=== PATIENT | female | born 1975 | race American Indian/Alaskan Native ===

== ENCOUNTER 2017-07-26 23:46 | Emergency (ER) | payer OTHER, MEDICAID ==
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
[2017-07-27] MEDS ORDERED: Iopamidol 612 MG/ML 100 ML Bottle IVPUSH ONE (00:08)
[2017-07-27 00:17] LABS: CHLORIDE,CL 104 mmol/L (101-111); SODIUM,NA 140 mmol/L (135-145)
== END 2017-07-27 01:32 | disposition home or self-care (01) ==
LOC: DL.ED 23:46
DX: S05.11XA Contusion of eyeball and orbital tissues, right eye, initial encounter (principal); F17.210 Nicotine dependence, cigarettes, uncomplicated; Z88.0 Allergy status to penicillin; X58.XXXA Exposure to other specified factors, initial encounter
CPT/HCPCS: 36415; 70450; 71260; 72125; 74177; 80053; 80305; 81003; 81025; 85025; 99285; G0480; Q9967

== ENCOUNTER 2019-02-27 15:16 | Emergency (ER) | payer MEDICAID, OTHER | END 2019-02-27 15:30 | LOC: DL.ED 15:16 | DX: Z53.21 Procedure and treatment not carried out due to patient leaving prior to being seen by health care provider (principal) | CPT/HCPCS: 99281 ==

== ENCOUNTER 2020-08-02 10:07 | Inpatient (IN) | payer BC, OTHER ==
--- NOTE | 2020-08-02 10:20 | EDM.PDOCBH ---
ED HPI GENERAL MEDICAL PROBLEM - General Chief Complaint: Drug or Alcohol Abuse Stated Complaint: AMBULANCE Time Seen by Provider: 08/02/20 10:20 Source of Information: Reports: Patient, EMS, EMS Notes Reviewed, RN, RN Notes Reviewed History Limitations: Reports: No Limitations - History of Present Illness INITIAL COMMENTS - FREE TEXT/NARRATIVE: Patient presents to ER per [place] [facility] with complaint of nausea/vomiting, anxiety, agitation. Patient states she has been drinking 2 pints a day for the past few months. States her best friend and the drinking has gotten worse. She was to be at the [facility] yesterday to be assisted with treatment, but did not show up as she was intoxicated. Patient states her last drink was at midnight last night. Patient admits to nausea, dry heaves and vomiting. Patient is very anxious. Denies any visual or auditory hallucinations, denies headache. Patient denies any chances of , states she had her tubes tied approximately 4 years ago. Onset: Gradual Duration: Getting Worse - Related Data Allergies Allergy/AdvReac Type Severity Reaction Status Date / Time Penicillins Allergy Rash Verified 08/16/19 00:59 Home Meds: Home Meds Mv-Mn/Iron/FA/Herbal/Digestive [ One Tablet] 1 each PO DAILY 01/22/15 [History] CIWAA - CIWAA CIWAA Nausea And Vomitin - Constant Nausea, Frequent Dry Heaves and Vomiting CIWAA Tremor: 3 CIWAA Paroxysmal Sweats: 2 CIWAA Anxiety: 4 - Moderately Anxious, or Guarded, so Anxiety is Inferred CIWAA Agitation: 1 -Somewhat More than Normal Activity CIWAA Tactile Disturbances: 1 - Very Mild Itching, Pins and [place], Burning or Numbness CIWAA Auditory Disturbances: 0 - Not Present CIWAA Visual Disturbances: 0 - Not Present CIWAA Headache, Fullness in Head: 0 - Not Present CIWAA Orientation And Clouding Of Sensorium: 0 - Oriented and Can do Serial Additions CIWAA Scale Score: 18 Past Medical History - Past Health History Medical/Surgical History: Denies Medical/Surgical History 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 3 miscarriages this past winter, last one was January 2015 twins. deliveries at 34 amd 36 weeks Musculoskeletal History: Reports: Back Pain, Chronic, Fracture Other Musculoskeletal History: fractures wrist hx with surgery 2003 Psychiatric History: Reports: Depression Other Psychiatric History: cigarette smoker and alcohol abuse in remission sustaned Endocrine/Metabolic History: Reports: Diabetes, Gestational - Past Surgical History Endocrine Surgical History: Reports: None Neurological Surgical History: Reports: None Social & Family History - Family History Family Medical History: Noncontributory - Living Situation & Occupation Living situation: Reports: Single Occupation: Employed ED ROS GENERAL - Review of Systems Review Of Systems: Comprehensive ROS is negative, except as noted in HPI. ED EXAM, BEHAVIORAL HEALTH - Physical Exam Exam: See Below Exam Limited By: No Limitations General Appearance: Alert, WD/WN, Anxious Eye Exam: Bilateral Eye: EOMI, Normal Inspection Ears: Normal External Exam, Hearing Grossly Normal Nose: Normal Inspection Throat/Mouth: Normal Inspection, Normal Voice, No Airway Compromise Head: Atraumatic, Normocephalic Neck: Normal Inspection, Supple, Non-Tender, Full Range of Motion Respiratory/Chest: No Respiratory Distress, No Accessory Muscle Use, Chest Non- Tender, Rhonchi (throughout) Cardiovascular: Normal Peripheral Pulses, Regular Rate, Rhythm, No Edema, No Gallop, No JVD, No Murmur, No Rub GI/Abdominal: Normal Bowel Sounds, Soft, Non-Tender (Female) Exam: Deferred Rectal (Female) Exam: Deferred Back Exam: Normal Inspection, Full Range of Motion, NT Extremities: Normal Inspection, Normal Range of Motion, Non-Tender, Normal Capillary Refill, No Pedal Edema Neurological: Alert, Normal Mood/Affect, CN II-XII Intact, Normal Cognition, Normal Gait, Normal Reflexes, No Motor/Sensory Deficits, Oriented x 3 Psychiatric: Alert, Normal Cognition, Oriented, Restless, Agitated Skin Exam: Warm, Dry, Intact, Normal color, No rash COURSE, BEHAVIORAL HEALTH COMP - Course Orders, Labs, Meds: Active Orders 24 hr Category Date Time Status Admission Diagnosis [ADT] Stat ADT 08/02/20 11:32 Ordered Patient Status [ADT] Routine ADT 08/02/20 11:32 Active CORONAVIRUS COVID-19 PCR PHL Stat Lab 08/02/20 11:32 Ordered DRUG SCREEN URINE BIORAD [URCHEM] Stat Lab 08/02/20 10:21 Ordered URINALYSIS W/MICROSCOPIC [UA W/MICROSCOPIC] [URIN] Stat Lab 08/02/20 10:24 Ordered Sodium Chloride 0.9% [Normal Saline] 1,000 ml Med 08/02/20 11:36 Ordered IV CONTINUOUS Laboratory Tests 08/02/20 08/02/20 Range/Units 10:39 10:39 WBC 8.2 (5.0-10.0) 10^3/uL RBC 5.14 (4.2-5.4) 10^6/uL Hgb 16.3 H (12.0-16.0) g/dL Hct 47.5 H (37.0-47.0) % MCV 92.4 (80-100) fL MCH 31.7 (27.0-34.0) pg MCHC 34.3 (33.0-35.0) g/dL Plt Count 221 (150-450) 10^3/uL Neut % (Auto) 86.3 H (42.2-75.2) % Lymph % (Auto) 8.0 L (20.5-50.1) % [place] % (Auto) 5.1 (2-8) % Eos % (Auto) 0.1 L (1.0-3.0) % Baso % (Auto) 0.5 (0.0-1.0) % Sodium 136 (136-145) mmol/L Potassium 3.9 (3.5-5.1) mmol/L Chloride 99 (98-107) mmol/L Carbon Dioxide 26 (21-32) mmol/L Anion Gap 14.9 H (7-13) mEq/L BUN 20 H (7-18) mg/dL Creatinine 0.72 (0.55-1.02) mg/dL Est Cr Clr Drug Dosing 98.49 mL/min Estimated GFR (MDRD) > 60 BUN/Creatinine Ratio 27.8 (No establ ref range) Glucose 106 H (74-99) mg/dL Calcium 7.7 L (8.5-10.1) mg/dL Total Bilirubin 0.5 (0.2-1.0) mg/dL AST 115 H (15-37) U/L ALT 65 H (14-59) U/L Alkaline Phosphatase 103 (46-116) U/L Total Protein 6.9 (6.4-8.2) g/dL Albumin 3.2 L (3.4-5.0) g/dL Globulin 3.7 Albumin/Globulin Ratio 0.86 Ethyl Alcohol 52 (0) mg/dL Medications Discontinued Medications Generic Name Dose Route Start Last Admin Trade Name Faustoq PRN Reason Stop Dose Admin Multivitamins/Minerals 10 ml/ 1,011.2 mls @ 999 mls/hr 08/02/20 10:25 08/02/20 10:46 Folic Acid 1 mg/ Thiamine HCl IV 08/02/20 11:25 999 mls/hr 100 mg/ Lactated Ringer's ONETIME ONE Administration Lorazepam 1 mg 08/02/20 10:25 08/02/20 10:43 Ativan IVPUSH 08/02/20 10:26 1 mg ONETIME ONE Administration Ondansetron HCl 4 mg 08/02/20 10:25 08/02/20 10:42 Zofran IV 08/02/20 10:26 4 mg ONETIME ONE Administration Discharge vs Psych Eval/Treatment:: 08/02/20 10:39 [facility] notified, 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 08/02/20 11:33 Carlos from the [facility] here to visit with the patient. Discussed patient case with Dr. Kenny who agreed to accept the patient for inpatient admission. Departure - Departure Time of Disposition: 11:37 Disposition: Admitted As Inpatient 64 Condition: Fair Clinical Impression: Alcohol withdrawal syndrome Qualifiers: Complication of substance-induced condition: uncomplicated Qualified Code(s): F10.230 - Alcohol dependence with withdrawal, uncomplicated - Discharge Information *PRESCRIPTION DRUG MONITORING PROGRAM REVIEWED*: No *COPY OF PRESCRIPTION DRUG MONITORING REPORT IN PATIENT BLANCA: No Forms: ED Department Discharge - My Orders Last 24 Hours: My Active Orders 08/02/20 10:21 DRUG SCREEN URINE BIORAD [URCHEM] Stat 08/02/20 10:24 URINALYSIS W/MICROSCOPIC [UA W/MICROSCOPIC] [URIN] Stat 08/02/20 11:32 Admission Diagnosis [ADT] Stat Patient Status [ADT] Routine CORONAVIRUS COVID-19 PCR PHL Stat 08/02/20 11:36 Sodium Chloride 0.9% [Normal Saline] 1,000 ml IV CONTINUOUS - Assessment/Plan Last 24 Hours: My Active Orders 08/02/20 10:21 DRUG SCREEN URINE BIORAD [URCHEM] Stat 08/02/20 10:24 URINALYSIS W/MICROSCOPIC [UA W/MICROSCOPIC] [URIN] Stat 08/02/20 11:32 Admission Diagnosis [ADT] Stat Patient Status [ADT] Routine CORONAVIRUS COVID-19 PCR PHL Stat 08/02/20 11:36 Sodium Chloride 0.9% [Normal Saline] 1,000 ml IV CONTINUOUS
[2020-08-02] MEDS ORDERED: Ondansetron 4 MG/2 ML SDV IV ONE (10:25)
[2020-08-02] MEDS ORDERED: LORazepam 2 MG/ML SDV IVPUSH ONE (10:25)
[2020-08-02] MEDS ORDERED: MVI, Adult with Vitamin K 10 ML, Folic Acid 1 MG, Thiamine 100 MG in Lactated Ringers 1... IV ONE ×4 (10:25)
[2020-08-02 10:56] LABS: ANION GAP 14.9 mEq/L (7-13); CHLORIDE,CL 99 mmol/L (98-107); SODIUM,NA 136 mmol/L (136-145)
[2020-08-02] MEDS ORDERED: Sodium Chloride 0.9% 1,000 ML IV ONE (11:36)
[2020-08-02] MEDS ORDERED: Ondansetron 4 MG/2 ML SDV IVPUSH PRN (12:32)
[2020-08-02] MEDS ORDERED: LORazepam 2 MG/ML SDV IV PRN (12:32)
--- NOTE | 2020-08-02 12:37 | PCM.HP ---
H&P History of Present Illness - General Date of Service: 08/02/20 Admit Problem/Dx: Admission Diagnosis/Problem Admission Diagnosis/Problem Alcohol withdrawal syndrome Source of Information: Patient History Limitations: Reports: No Limitations - History of Present Illness Initial Comments - Free Text/Narative: Patient is a 44-year-old female with a medical history of gestational diabetes, depression, alcohol abuse and tobacco use who presented with complains of nausea, vomiting, diarrhea and anxiety. Patient's symptoms started about 2 days ago with multiple episodes of loose stools per day. She denied blood in the stools. Today she had several episodes of emesis since this morning. These have been associated with diffuse mild abdominal pain. She report drinking about 2 pints of alcohol everyday for the past few months. Her last drink was yesterday. She complains of anxiety due to her alcohol use and is wanting to quit. In the ER, she required ativan for withd alma symptoms. Labs were remarkable for elevated transaminases. - Related Data Allergies/Adverse Reactions: Allergies Allergy/AdvReac Type Severity Reaction Status Date / Time amoxicillin Allergy Rash Verified 08/02/20 12:25 Penicillins Allergy Rash Verified 08/16/19 00:59 Home Medications: Home Meds . 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 3 miscarriages this past winter, last one was January 2015 twins. deliveries at 34 amd 36 weeks Musculoskeletal History: Reports: Back Pain, Chronic, Fracture Other Musculoskeletal History: fractures wrist hx with surgery 2003 Psychiatric History: Reports: Depression Other Psychiatric History: cigarette smoker and alcohol abuse in remission sustaned Endocrine/Metabolic History: Reports: Diabetes, Gestational - Past Surgical History Endocrine Surgical History: Reports: None Neurological Surgical History: Reports: None Social & Family History - Family History Family Medical History: Noncontributory - Living Situation & Occupation Living situation: Reports: Single Occupation: Employed H&P Review of Systems - Review of Systems: Review Of Systems: See Below General: Reports: No Symptoms HEENT: Reports: No Symptoms Pulmonary: Reports: No Symptoms Gastrointestinal: Reports: Abdominal Pain, Diarrhea, Nausea, Vomiting Genitourinary: Reports: No Symptoms Musculoskeletal: Reports: No Symptoms Skin: Reports: No Symptoms Psychiatric: Reports: No Symptoms Neurological: Reports: No Symptoms Hematologic/Lymphatic: Reports: No Symptoms Exam - Exam Exam: See Below - Vital Signs Weight: 205 lb - Exam General: Alert, Oriented, 4 HEENT: PERRLA, Hearing Intact, Mucosa Moist & [place], Nares Patent, Normal Nasal Septum, Posterior Pharynx Clear, Conjunctiva Clear, EOMI, EACs Clear, TMs Clear Neck: Supple, Trachea Midline, 2 Lungs: Clear to Auscultation, Normal Respiratory Effort Cardiovascular: Regular Rate, Regular Rhythm GI/Abdominal Exam: Normal Bowel Sounds, Soft, No Organomegaly, No Distention, No Abnormal Bruit, No Mass, Pelvis Stable, Tender Back Exam: Normal Inspection, Full Range of Motion, NT Extremities: Normal Inspection, Normal Range of Motion, Non-Tender, No Pedal Edema, Normal Capillary Refill Neurological: Cranial Nerves Intact, Reflexes Equal Bilateral Neuro Extensive - Mental Status: Alert, Oriented x3, Normal Mood/Affect, Normal Cognition Neuro Extensive - Motor, Sensory, Reflexes: CN II-XII Intact, Normal Gait, Normal Reflexes Psychiatric: Alert, Normal Affect, Normal Mood - Patient Data Lab Results Last 24 hrs: Laboratory Results - last 24 hr 08/02/20 08/02/20 08/02/20 Range/Units 10:39 10:39 11:50 WBC 8.2 (5.0-10.0) 10^3/uL RBC 5.14 (4.2-5.4) 10^6/uL Hgb 16.3 H (12.0-16.0) g/dL Hct 47.5 H (37.0-47.0) % MCV 92.4 (80-100) fL MCH 31.7 (27.0-34.0) pg MCHC 34.3 (33.0-35.0) g/dL Plt Count 221 (150-450) 10^3/uL Neut % (Auto) 86.3 H (42.2-75.2) % Lymph % (Auto) 8.0 L (20.5-50.1) % [place] % (Auto) 5.1 (2-8) % Eos % (Auto) 0.1 L (1.0-3.0) % Baso % (Auto) 0.5 (0.0-1.0) % Sodium 136 (136-145) mmol/L Potassium 3.9 (3.5-5.1) mmol/L Chloride 99 (98-107) mmol/L Carbon Dioxide 26 (21-32) mmol/L Anion Gap 14.9 H (7-13) mEq/L BUN 20 H (7-18) mg/dL Creatinine 0.72 (0.55-1.02) mg/dL Est Cr Clr Drug Dosing 98.49 mL/min Estimated GFR (MDRD) > 60 BUN/Creatinine Ratio 27.8 (No establ ref range) Glucose 106 H (74-99) mg/dL Calcium 7.7 L (8.5-10.1) mg/dL Total Bilirubin 0.5 (0.2-1.0) mg/dL AST 115 H (15-37) U/L ALT 65 H (14-59) U/L Alkaline Phosphatase 103 (46-116) U/L Total Protein 6.9 (6.4-8.2) g/dL Albumin 3.2 L (3.4-5.0) g/dL Globulin 3.7 Albumin/Globulin Ratio 0.86 Ethyl Alcohol 52 (0) mg/dL SARS CoV-2 RNA Rapid DERRICK Negative (NEGATIVE) Result Diagrams: 08/02/20 10:39 08/02/20 10:39 Problem List Initiated/Reviewed/Updated: Yes Orders Last 24hrs: Active Orders 24 hr Category Date Time Status Admission Diagnosis [ADT] Stat ADT 08/02/20 11:32 Ordered Patient Status [ADT] Routine ADT 08/02/20 11:32 Active Antiembolic Devices [RC] PER UNIT ROUTINE Care 08/02/20 12:33 Active Aspiration Precautions [RC] ASDIRECTED Care 08/02/20 12:35 Active CIWAA Assessment [RC] Q4H Care 08/02/20 12:32 Active Cardiac Monitoring [RC] CONTINUOUS Care 08/02/20 12:32 Active Notify Provider [RC] PRN Care 08/02/20 12:35 Active Oxygen Therapy [RC] PRN Care 08/02/20 12:32 Active Up ad Padmini [RC] ASDIRECTED Care 08/02/20 12:32 Active VTE/DVT Education [RC] PER UNIT ROUTINE Care 08/02/20 12:32 Active Vital Signs [RC] Q4H Care 08/02/20 12:32 Active Regular Diet [DIET] Diet 08/02/20 Lunch Active BASIC METABOLIC PANEL,BMP [CHEM] AM Lab 08/03/20 05:11 Ordered DRUG SCREEN URINE BIORAD [URCHEM] Stat Lab 08/02/20 10:21 Ordered MAGNESIUM [CHEM] AM Lab 08/03/20 05:11 Ordered PHOSPHORUS [CHEM] AM Lab 08/03/20 05:11 Ordered URINALYSIS W/MICROSCOPIC [UA W/MICROSCOPIC] [URIN] Stat Lab 08/02/20 10:24 Ordered Enoxaparin [Lovenox] Med 08/02/20 13:00 Ordered 40 mg SUBCUT DAILY LORazepam [Ativan] Med 08/02/20 12:32 Ordered See Protocol IV TITRATE PRN LORazepam [Ativan] Med 08/02/20 12:32 Ordered See Protocol PO TITRATE PRN Multivitamins,Therapeutic [Thera] Med 08/03/20 09:00 Ordered 1 each PO DAILY Ondansetron [Zofran ODT] Med 08/02/20 12:32 Ordered 4 mg PO Q4H PRN Ondansetron [Zofran] Med 08/02/20 12:32 Ordered 4 mg IVPUSH Q4H PRN Sodium Chloride 0.9% [Normal Saline] 1,000 ml Med 08/02/20 11:36 Active IV CONTINUOUS Thiamine [Vitamin B-1] Med 08/03/20 09:00 Ordered 100 mg PO DAILY Antiembolic Hose [OM.PC] Per Unit Routine Oth 08/02/20 12:32 Ordered Resuscitation Status Routine Resus Stat 08/02/20 12:32 Ordered Medication Orders Enoxaparin Sodium (Lovenox) 40 mg SUBCUT DAILY MAX Sodium Chloride (Normal Saline) 1,000 mls @ 100 mls/hr IV CONTINUOUS ONE Stop: 08/02/20 21:35 Lorazepam (Ativan) 0 mg IV TITRATE PRN; Protocol PRN Reason: alcohol withdrawal Lorazepam (Ativan) 0 mg PO TITRATE PRN; Protocol PRN Reason: alcohol withdrawal Multivitamins (Thera) 1 each PO DAILY MAX Ondansetron HCl (Zofran Odt) 4 mg PO Q4H PRN PRN Reason: nausea, able to take PO Ondansetron HCl (Zofran) 4 mg IVPUSH Q4H PRN PRN Reason: Nausea/Vomiting Thiamine HCl (Vitamin B-1) 100 mg PO DAILY MAX Assessment/Plan Comment:: Alcohol withdrawal - Start CIWA protocol - Daily thiamine and Multivitamin -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
[2020-08-02] MEDS: Ondansetron 4 MG Tab.DIS PO PRN ×2 (14:17→19:34)
[2020-08-02] MEDS: Enoxaparin 40 MG/0.4 ML Syringe SUBCUT SCH (14:17)
[2020-08-02] MEDS: LORazepam 0.5 MG Tab PO PRN ×3 (14:17→21:14)
[2020-08-03 07:05] LABS: ANION GAP 12.4 mEq/L (7-13); CHLORIDE,CL 101 mmol/L (98-107); SODIUM,NA 136 mmol/L (136-145)
[2020-08-03] MEDS: Thiamine 100 MG Tab PO SCH (08:16)
[2020-08-03] MEDS: Multivitamins,Therapeutic Tab PO SCH (08:16)
[2020-08-03] MEDS: Enoxaparin 40 MG/0.4 ML Syringe SUBCUT SCH (08:19)
[2020-08-03] MEDS ORDERED: Potassium Chloride 10 MEQ Tab.ER PO SCH (09:00)
--- NOTE | 2020-08-03 10:30 | PCM.PN ---
- General Info Date of Service: 08/03/20 Admission Dx/Problem (Free Text): Admission Diagnosis/Problem Admission Diagnosis/Problem Alcohol withdrawal syndrome Subjective Update: Patient seen and examined today. Still having lose stool and mild abdominal cramps, though improving. Required ativan for withdrawal symptoms. Afebrile overnight. Functional Status: Reports: Pain Controlled - Review of Systems General: Reports: No Symptoms HEENT: Reports: No Symptoms Pulmonary: Reports: No Symptoms Cardiovascular: Reports: No Symptoms Gastrointestinal: Reports: Abdominal Pain, Diarrhea Genitourinary: Reports: No Symptoms Musculoskeletal: Reports: No Symptoms Skin: Reports: No Symptoms Neurological: Reports: No Symptoms Psychiatric: Reports: No Symptoms - Patient Data Vitals - Most Recent: Last Vital Signs Temp 97.6 F 08/03/20 07:44 Pulse 83 08/03/20 07:44 Resp 18 08/03/20 07:44 BP 146/68 H 08/03/20 07:44 Pulse Ox 95 08/03/20 07:44 Weight - Most Recent: 205 lb I&O - Last 24 Hours: Intake & Output 08/02/20 08/03/20 08/03/20 22:59 06:59 14:59 Intake Total 240 1457 200 Balance 240 1457 200 Lab Results Last 24 Hours: Laboratory Results - last 24 hr 08/02/20 08/02/20 08/02/20 Range/Units 10:39 10:39 10:39 WBC 8.2 (5.0-10.0) 10^3/uL RBC 5.14 (4.2-5.4) 10^6/uL Hgb 16.3 H (12.0-16.0) g/dL Hct 47.5 H (37.0-47.0) % MCV 92.4 (80-100) fL MCH 31.7 (27.0-34.0) pg MCHC 34.3 (33.0-35.0) g/dL Plt Count 221 (150-450) 10^3/uL Neut % (Auto) 86.3 H (42.2-75.2) % Lymph % (Auto) 8.0 L (20.5-50.1) % Lares % (Auto) 5.1 (2-8) % Eos % (Auto) 0.1 L (1.0-3.0) % Baso % (Auto) 0.5 (0.0-1.0) % Sodium 136 (136-145) mmol/L Potassium 3.9 (3.5-5.1) mmol/L Chloride 99 (98-107) mmol/L Carbon Dioxide 26 (21-32) mmol/L Anion Gap 14.9 H (7-13) mEq/L BUN 20 H (7-18) mg/dL Creatinine 0.72 (0.55-1.02) mg/dL Est Cr Clr Drug Dosing 98.49 mL/min Estimated GFR (MDRD) > 60 BUN/Creatinine Ratio 27.8 (No establ ref range) Glucose 106 H (74-99) mg/dL Calcium 7.7 L (8.5-10.1) mg/dL Phosphorus (2.6-4.7) mg/dL Magnesium (1.8-2.4) mg/dL Total Bilirubin 0.5 (0.2-1.0) mg/dL AST 115 H (15-37) U/L ALT 65 H (14-59) U/L Alkaline Phosphatase 103 (46-116) U/L Total Protein 6.9 (6.4-8.2) g/dL Albumin 3.2 L (3.4-5.0) g/dL Globulin 3.7 Albumin/Globulin Ratio 0.86 Lipase 76 (73-393) U/L Urine Color (YELLOW) Urine Appearance (CLEAR) Urine pH (5.0-9.0) Ur Specific [place] (1.005-1.030) Urine Protein (NEGATIVE) Urine Glucose (UA) (NEGATIVE) Urine Ketones (NEGATIVE) Urine Occult Blood (NEGATIVE) Urine Nitrite (NEGATIVE) Urine Bilirubin (NEGATIVE) Urine Urobilinogen (0.2-1.0) mg/dL Ur Leukocyte Esterase (NEGATIVE) Urine RBC /HPF Urine WBC (0-5/HPF) /HPF Ur Epithelial Cells (NOT SEEN) /HPF Urine Opiates Screen (NEGATIVE) Ur Oxycodone Screen (NEGATIVE) Urine Methadone Screen (NEGATIVE) Ur Barbiturates Screen (NEGATIVE) U Tricyclic Antidepress (NEGATIVE) Ur Phencyclidine Scrn (NEGATIVE) Ur Amphetamine Screen (NEGATIVE) U Methamphetamines Scrn (NEGATIVE) Urine MDMA Screen (NEGATIVE) U Benzodiazepines Scrn (NEGATIVE) Urine Cocaine Screen (NEGATIVE) U Marijuana (THC) Screen (NEGATIVE) Ethyl Alcohol 52 (0) mg/dL SARS CoV-2 RNA Rapid DERRICK (NEGATIVE) 08/02/20 08/02/20 08/02/20 Range/Units 11:50 14:05 14:05 WBC (5.0-10.0) 10^3/uL RBC (4.2-5.4) 10^6/uL Hgb (12.0-16.0) g/dL Hct (37.0-47.0) % MCV (80-100) fL MCH (27.0-34.0) pg MCHC (33.0-35.0) g/dL Plt Count (150-450) 10^3/uL Neut % (Auto) (42.2-75.2) % Lymph % (Auto) (20.5-50.1) % Lares % (Auto) (2-8) % Eos % (Auto) (1.0-3.0) % Baso % (Auto) (0.0-1.0) % Sodium (136-145) mmol/L Potassium (3.5-5.1) mmol/L Chloride (98-107) mmol/L Carbon Dioxide (21-32) mmol/L Anion Gap (7-13) mEq/L BUN (7-18) mg/dL Creatinine (0.55-1.02) mg/dL Est Cr Clr Drug Dosing mL/min Estimated GFR (MDRD) BUN/Creatinine Ratio (No establ ref range) Glucose (74-99) mg/dL Calcium (8.5-10.1) mg/dL Phosphorus (2.6-4.7) mg/dL Magnesium (1.8-2.4) mg/dL Total Bilirubin (0.2-1.0) mg/dL AST (15-37) U/L ALT (14-59) U/L Alkaline Phosphatase (46-116) U/L Total Protein (6.4-8.2) g/dL Albumin (3.4-5.0) g/dL Globulin Albumin/Globulin Ratio Lipase (73-393) U/L Urine Color Yellow (YELLOW) Urine Appearance Clear (CLEAR) Urine pH 7.0 (5.0-9.0) Ur Specific [place] 1.025 (1.005-1.030) Urine Protein 30 H (NEGATIVE) Urine Glucose (UA) Negative (NEGATIVE) Urine Ketones Negative (NEGATIVE) Urine Occult Blood Small H (NEGATIVE) Urine Nitrite Negative (NEGATIVE) Urine Bilirubin Negative (NEGATIVE) Urine Urobilinogen 0.2 (0.2-1.0) mg/dL Ur Leukocyte Esterase Negative (NEGATIVE) Urine RBC 0-5 /HPF Urine WBC 0-5 (0-5/HPF) /HPF Ur Epithelial Cells Few (NOT SEEN) /HPF Urine Opiates Screen Negative (NEGATIVE) Ur Oxycodone Screen Negative (NEGATIVE) Urine Methadone Screen Negative (NEGATIVE) Ur Barbiturates Screen Negative (NEGATIVE) U Tricyclic Antidepress Negative (NEGATIVE) Ur Phencyclidine Scrn Negative (NEGATIVE) Ur Amphetamine Screen Negative (NEGATIVE) U Methamphetamines Scrn Negative (NEGATIVE) Urine MDMA Screen Negative (NEGATIVE) U Benzodiazepines Scrn Positive H (NEGATIVE) Urine Cocaine Screen Negative (NEGATIVE) U Marijuana (THC) Screen Negative (NEGATIVE) Ethyl Alcohol (0) mg/dL SARS CoV-2 RNA Rapid DERRICK Negative (NEGATIVE) 08/03/20 Range/Units 06:26 WBC (5.0-10.0) 10^3/uL RBC (4.2-5.4) 10^6/uL Hgb (12.0-16.0) g/dL Hct (37.0-47.0) % MCV (80-100) fL MCH (27.0-34.0) pg MCHC (33.0-35.0) g/dL Plt Count (150-450) 10^3/uL Neut % (Auto) (42.2-75.2) % Lymph % (Auto) (20.5-50.1) % Lares % (Auto) (2-8) % Eos % (Auto) (1.0-3.0) % Baso % (Auto) (0.0-1.0) % Sodium 136 (136-145) mmol/L Potassium 3.4 L (3.5-5.1) mmol/L Chloride 101 (98-107) mmol/L Carbon Dioxide 26 (21-32) mmol/L Anion Gap 12.4 (7-13) mEq/L BUN 12 (7-18) mg/dL Creatinine 0.66 (0.55-1.02) mg/dL Est Cr Clr Drug Dosing 107.44 mL/min Estimated GFR (MDRD) > 60 BUN/Creatinine Ratio (No establ ref range) Glucose 104 H (74-99) mg/dL Calcium 7.6 L (8.5-10.1) mg/dL Phosphorus 2.8 (2.6-4.7) mg/dL Magnesium 1.8 (1.8-2.4) mg/dL Total Bilirubin (0.2-1.0) mg/dL AST (15-37) U/L ALT (14-59) U/L Alkaline Phosphatase (46-116) U/L Total Protein (6.4-8.2) g/dL Albumin (3.4-5.0) g/dL Globulin Albumin/Globulin Ratio Lipase (73-393) U/L Urine Color (YELLOW) Urine Appearance (CLEAR) Urine pH (5.0-9.0) Ur Specific [place] (1.005-1.030) Urine Protein (NEGATIVE) Urine Glucose (UA) (NEGATIVE) Urine Ketones (NEGATIVE) Urine Occult Blood (NEGATIVE) Urine Nitrite (NEGATIVE) Urine Bilirubin (NEGATIVE) Urine Urobilinogen (0.2-1.0) mg/dL Ur Leukocyte Esterase (NEGATIVE) Urine RBC /HPF Urine WBC (0-5/HPF) /HPF Ur Epithelial Cells (NOT SEEN) /HPF Urine Opiates Screen (NEGATIVE) Ur Oxycodone Screen (NEGATIVE) Urine Methadone Screen (NEGATIVE) Ur Barbiturates Screen (NEGATIVE) U Tricyclic Antidepress (NEGATIVE) Ur Phencyclidine Scrn (NEGATIVE) Ur Amphetamine Screen (NEGATIVE) U Methamphetamines Scrn (NEGATIVE) Urine MDMA Screen (NEGATIVE) U Benzodiazepines Scrn (NEGATIVE) Urine Cocaine Screen (NEGATIVE) U Marijuana (THC) Screen (NEGATIVE) Ethyl Alcohol (0) mg/dL SARS CoV-2 RNA Rapid DERRICK (NEGATIVE) Kvng Results Last 24 Hours: Microbiology 08/02/20 14:05 Clostridioides difficile (PCR) - Final Stool / Feces Med Orders - Current: Current Medications Enoxaparin Sodium (Lovenox) 40 mg SUBCUT DAILY [facility] Last Admin: 08/03/20 08:19 Dose: 40 mg Documented by: Sodium Chloride (Normal Saline) 1,000 mls @ 100 mls/hr IV ASDIRECTED [facility] Influenza Virus Vaccine (Pharmacy To Dose - Influenza Vaccine) 1 each IM DAILY [facility] Last Admin: 08/02/20 15:36 Dose: Not Given Documented by: Lorazepam (Ativan) 0 mg IV TITRATE PRN; Protocol PRN Reason: alcohol withdrawal Lorazepam (Ativan) 0 mg PO TITRATE PRN; Protocol PRN Reason: alcohol withdrawal Last Admin: 08/02/20 21:14 Dose: 1 mg Documented by: Multivitamins (Thera) 1 each PO DAILY [facility] Last Admin: 08/03/20 08:16 Dose: 1 each Documented by: Ondansetron HCl (Zofran Odt) 4 mg PO Q4H PRN PRN Reason: nausea, able to take PO Last Admin: 08/02/20 19:34 Dose: 4 mg Documented by: Ondansetron HCl (Zofran) 4 mg IVPUSH Q4H PRN PRN Reason: Nausea/Vomiting Thiamine HCl (Vitamin B-1) 100 mg PO DAILY [facility] Last Admin: 08/03/20 08:16 Dose: 100 mg Documented by: Discontinued Medications Multivitamins/Minerals 10 ml/Folic Acid 1 mg/ Thiamine HCl 100 mg/ Lactated Ringer's 1,011.2 mls @ 999 mls/hr IV ONETIME ONE Stop: 08/02/20 11:25 Last Admin: 08/02/20 10:46 Dose: 999 mls/hr Documented by: Sodium Chloride (Normal Saline) 1,000 mls @ 100 mls/hr IV CONTINUOUS ONE Stop: 08/02/20 21:35 Last Infusion: 08/03/20 00:52 Dose: Infused Documented by: Lorazepam (Ativan) 1 mg IVPUSH ONETIME ONE Stop: 08/02/20 10:26 Last Admin: 08/02/20 10:43 Dose: 1 mg Documented by: Ondansetron HCl (Zofran) 4 mg IV ONETIME ONE Stop: 08/02/20 10:26 Last Admin: 08/02/20 10:42 Dose: 4 mg Documented by: Potassium Chloride (Klor-Con 10) 40 meq PO BIDMEALS [facility] Stop: 08/03/20 09:01 Last Admin: 08/03/20 08:35 Dose: 40 meq Documented by: - Exam General: Alert, Oriented HEENT: Pupils Equal, Pupils Reactive, EOMI, Mucous Membr. Moist/[place] Neck: Supple Lungs: Clear to Auscultation, Normal Respiratory Effort Cardiovascular: Regular Rate, Regular Rhythm GI/Abdominal Exam: Normal Bowel Sounds, Soft, No Organomegaly, No Distention, Tender Back Exam: Normal Inspection, Full Range of Motion Extremities: Normal Inspection, Normal Range of Motion, Non-Tender, No Pedal Edema, Normal Capillary Refill Skin: Warm, Dry, Intact Neurological: No New Focal Deficit Psy/Mental Status: Alert, Normal Affect, Normal Mood Sepsis Event Note - Evaluation Sepsis Screening Result: No Definite Risk - Focused Exam Vital Signs: Vital Signs Temp Pulse Pulse Resp BP BP Pulse Ox 08/03/20 07:44 97.6 F 83 58 L 18 146/68 H 95 08/03/20 04:45 96.8 F L 58 L 18 150/75 H 95 - Problem List Review Problem List Initiated/Reviewed/Updated: Yes - My Orders Last 24 Hours: My Active Orders 08/02/20 Lunch Regular Diet [DIET] 08/02/20 12:32 CIWAA Assessment [RC] Q4H Cardiac Monitoring [RC] , Oxygen Therapy [RC] PRN Up ad Padmini [RC] ASDIRECTED VTE/DVT Education [RC] PER UNIT ROUTINE Vital Signs [RC] Q4H LORazepam [Ativan] See Protocol IV TITRATE PRN LORazepam [Ativan] See Protocol PO TITRATE PRN Ondansetron [Zofran ODT] 4 mg PO Q4H PRN Ondansetron [Zofran] 4 mg IVPUSH Q4H PRN Antiembolic Hose [OM.PC] Per Unit Routine Resuscitation Status Routine 08/02/20 12:33 Antiembolic Devices [RC] PER UNIT ROUTINE 08/02/20 12:35 Aspiration Precautions [RC] ASDIRECTED Notify Provider [RC] PRN 08/02/20 12:55 Pharmacy to Dose - InFluenza V [Pharmacy to Dose - InFluenza Vaccine] 1 each IM DAILY 08/02/20 12:56 Influenza Vaccine Charge [RC] .DISCHARGE 08/02/20 13:00 Enoxaparin [Lovenox] 40 mg SUBCUT DAILY 08/03/20 09:00 Multivitamins,Therapeutic [Thera] 1 each PO DAILY Thiamine [Vitamin B-1] 100 mg PO DAILY 08/03/20 10:30 Sodium Chloride 0.9% [Normal Saline] 1,000 ml IV ASDIRECTED - Plan Plan:: Alcohol withdrawal - On CIWA protocol with daily thiamine and multivitamin - Counseled on alcohol cessation Acute gastroenteritis Likely due to alcohol use vs infection - Lipase normal - Test for C Diff negative - Maintenance IVF -Start loperamide 4 times daily as needed Alcoholic hepatitis LFTs elevated - Trend LFTs - Avoid alcohol Type II DM - Resume home insulin regimen - SSI with hypoglycemia protocol
[2020-08-03] MEDS ORDERED: Loperamide 2 MG Cap PO PRN (10:37)
[2020-08-03] MEDS: Sodium Chloride 0.9% 1,000 ML IV SCH ×2 (10:57→20:29)
[2020-08-03] MEDS ORDERED: Sodium Chloride 0.9% 10 ML Syringe FLUSH PRN (12:59)
[2020-08-04] MEDS: Sodium Chloride 0.9% 1,000 ML IV SCH (05:33)
[2020-08-04 06:33] LABS: ANION GAP 14.6 mEq/L (7-13); CHLORIDE,CL 104 mmol/L (98-107); SODIUM,NA 138 mmol/L (136-145)
[2020-08-04] MEDS: Enoxaparin 40 MG/0.4 ML Syringe SUBCUT SCH (08:46)
[2020-08-04] MEDS: Multivitamins,Therapeutic Tab PO SCH (08:46)
[2020-08-04] MEDS: Thiamine 100 MG Tab PO SCH (08:46)
--- NOTE | 2020-08-04 11:51 | PCM.DCSUM1 ---
Discharge Summary - Hospital Course Free Text/Narrative:: Patient is a 44-year-old female with a medical history of gestational diabetes, depression, alcohol abuse and tobacco use who presented with complains of nausea, vomiting, diarrhea and anxiety. She also reported drinking 2 pints of alcohol every day for the past few months. She was admitted for alcohol withdrawal and treated with Ativan by [facility] protocol. C. difficile test was negative. She was started on loperamide which resolution of her diarrhea. Diagnosis: Stroke: No - Discharge Data Discharge Date: 08/04/20 Discharge Disposition: Home, Self-Care 01 Condition: Good - Referral to Home Health Primary Care Physician: [facility] - Discharge Plan *PRESCRIPTION DRUG MONITORING PROGRAM REVIEWED*: Not Applicable *COPY OF PRESCRIPTION DRUG MONITORING REPORT IN PATIENT [place]AN[place]: Not Applicable Prescriptions/Med Rec: Loperamide [Imodium] 4 mg PO Q8H PRN #10 cap PRN Reason: Diarrhea Home Medications: Home Meds Loperamide [Imodium] 4 mg PO Q8H PRN #10 cap 08/04/20 [Rx] Oxygen Therapy Mode: Room Air Forms: ED Department Discharge Referrals: [facility] [Primary Care Provider] - - Discharge Summary/Plan Comment DC Time >30 min.: Yes - General Info Date of Service: 08/04/20 Admission Dx/Problem (Free Text: Admission Diagnosis/Problem Admission Diagnosis/Problem Alcohol withdrawal syndrome Subjective Update: Patient seen and examined today. Diarrhea resolved. CIWA scores normal. Afebrile overnight. Functional Status: Reports: Pain Controlled - Review of Systems General: Reports: No Symptoms HEENT: Reports: No Symptoms Pulmonary: Reports: No Symptoms Cardiovascular: Reports: No Symptoms Gastrointestinal: Reports: No Symptoms Genitourinary: Reports: No Symptoms Musculoskeletal: Reports: No Symptoms Skin: Reports: No Symptoms Neurological: Reports: No Symptoms Psychiatric: Reports: No Symptoms - Patient Data Vitals - Most Recent: Last Vital Signs Temp 97.6 F 08/04/20 08:00 Pulse 63 08/04/20 08:00 Resp 16 08/04/20 08:00 BP 143/84 H 08/04/20 08:00 Pulse Ox 97 08/04/20 08:00 Weight - Most Recent: 205 lb I&O - Last 24 hours: Intake & Output 08/03/20 08/04/20 08/04/20 22:59 06:59 14:59 Intake Total 320 2800 120 Balance 320 2800 120 Lab Results - Last 24 hrs: Laboratory Results - last 24 hr 08/04/20 08/04/20 Range/Units 05:40 05:40 WBC 5.5 (5.0-10.0) 10^3/uL RBC 4.24 (4.2-5.4) 10^6/uL Hgb 13.5 D (12.0-16.0) g/dL Hct 40.3 (37.0-47.0) % MCV 95.0 (80-100) fL MCH 31.8 (27.0-34.0) pg MCHC 33.5 (33.0-35.0) g/dL Plt Count 139 L D (150-450) 10^3/uL Sodium 138 (136-145) mmol/L Potassium 3.6 (3.5-5.1) mmol/L Chloride 104 (98-107) mmol/L Carbon Dioxide 23 (21-32) mmol/L Anion Gap 14.6 H (7-13) mEq/L BUN 9 (7-18) mg/dL Creatinine 0.64 (0.55-1.02) mg/dL Est Cr Clr Drug Dosing 110.80 mL/min Estimated GFR (MDRD) > 60 BUN/Creatinine Ratio 14.1 (No establ ref range) Glucose 97 (74-99) mg/dL Calcium 7.6 L (8.5-10.1) mg/dL Total Bilirubin 0.5 (0.2-1.0) mg/dL AST 59 H (15-37) U/L ALT 45 (14-59) U/L Alkaline Phosphatase 92 (46-116) U/L Total Protein 5.7 L (6.4-8.2) g/dL Albumin 2.5 L (3.4-5.0) g/dL Globulin 3.2 Albumin/Globulin Ratio 0.78 IRASEMA Results - Last 24 hrs: Microbiology 08/02/20 14:05 Clostridioides difficile (PCR) - Final Stool / Feces Clostridioides difficile Toxin Assay - Final Med Orders - Current: Current Medications Enoxaparin Sodium (Lovenox) 40 mg SUBCUT DAILY [facility] Last Admin: 08/04/20 08:46 Dose: 40 mg Documented by: Sodium Chloride (Normal Saline) 1,000 mls @ 100 mls/hr IV ASDIRECTED [facility] Last Admin: 08/04/20 05:33 Dose: 100 mls/hr Documented by: Influenza Virus Vaccine (Pharmacy To Dose - Influenza Vaccine) 1 each IM DAILY [facility] Last Admin: 08/04/20 08:26 Dose: Not Given Documented by: Loperamide HCl (Imodium) 4 mg PO Q8H PRN PRN Reason: Diarrhea Lorazepam (Ativan) 0 mg IV TITRATE PRN; Protocol PRN Reason: alcohol withdrawal Lorazepam (Ativan) 0 mg PO TITRATE PRN; Protocol PRN Reason: alcohol withdrawal Last Admin: 08/02/20 21:14 Dose: 1 mg Documented by: Multivitamins (Thera) 1 each PO DAILY [facility] Last Admin: 08/04/20 08:46 Dose: 1 each Documented by: Ondansetron HCl (Zofran Odt) 4 mg PO Q4H PRN PRN Reason: nausea, able to take PO Last Admin: 08/02/20 19:34 Dose: 4 mg Documented by: Ondansetron HCl (Zofran) 4 mg IVPUSH Q4H PRN PRN Reason: Nausea/Vomiting Sodium Chloride (Saline Flush) 10 ml FLUSH ASDIRECTED PRN PRN Reason: Keep Vein Open Thiamine HCl (Vitamin B-1) 100 mg PO DAILY [facility] Last Admin: 08/04/20 08:46 Dose: 100 mg Documented by: Discontinued Medications Multivitamins/Minerals 10 ml/Folic Acid 1 mg/ Thiamine HCl 100 mg/ Lactated Ringer's 1,011.2 mls @ 999 mls/hr IV ONETIME ONE Stop: 08/02/20 11:25 Last Admin: 08/02/20 10:46 Dose: 999 mls/hr Documented by: Sodium Chloride (Normal Saline) 1,000 mls @ 100 mls/hr IV CONTINUOUS ONE Stop: 08/02/20 21:35 Last Infusion: 08/03/20 00:52 Dose: Infused Documented by: Lorazepam (Ativan) 1 mg IVPUSH ONETIME ONE Stop: 08/02/20 10:26 Last Admin: 08/02/20 10:43 Dose: 1 mg Documented by: Ondansetron HCl (Zofran) 4 mg IV ONETIME ONE Stop: 08/02/20 10:26 Last Admin: 08/02/20 10:42 Dose: 4 mg Documented by: Potassium Chloride (Klor-Con 10) 40 meq PO BIDMEALS [facility] Stop: 08/03/20 09:01 Last Admin: 08/03/20 08:35 Dose: 40 meq Documented by: - Exam General: Reports: Alert, Oriented HEENT: Reports: Pupils Equal, Pupils Reactive, EOMI, Mucous Membr. Moist/[place] Neck: Reports: Supple Lungs: Reports: Clear to Auscultation, Normal Respiratory Effort Cardiovascular: Reports: Regular Rate, Regular Rhythm GI/Abdominal Exam: Normal Bowel Sounds, Soft, Non-Tender, No Organomegaly, No Distention, No Abnormal Bruit, No Mass, Pelvis Stable Back Exam: Reports: Normal Inspection, Full Range of Motion Extremities: Normal Inspection, Normal Range of Motion, Non-Tender, No Pedal Edema, Normal Capillary Refill Skin: Reports: Warm, Dry, Intact Neurological: Reports: No New Focal Deficit Psy/Mental Status: Reports: Alert, Normal Affect, Normal Mood
[2020-08-04 13:09] VITALS: BP 156/78; PULSE 77
== END 2020-08-04 14:55 | disposition home or self-care (01) | DRG 775 ==
LOC: DL.ED 10:07 → DL.MS 11:32
PROVIDERS: ADMIT Internal Medicine; ATTEND Internal Medicine
DX: F10.239 Alcohol dependence with withdrawal, unspecified (principal); F32.9 Major depressive disorder, single episode, unspecified; F41.9 Anxiety disorder, unspecified; Z88.0 Allergy status to penicillin; Z88.1 Allergy status to other antibiotic agents; G89.29 Other chronic pain; M54.9 Dorsalgia, unspecified; F17.210 Nicotine dependence, cigarettes, uncomplicated; K52.9 Noninfective gastroenteritis and colitis, unspecified; K70.10 Alcoholic hepatitis without ascites; E11.9 Type 2 diabetes mellitus without complications; Z20.828 Contact with and (suspected) exposure to other viral communicable diseases
CPT/HCPCS: 36415; 80048; 80053; 80305-QW; 80307; 81001; 83690; 83735; 84100; 85025; 85027; 87493; 96365; 96375; 99285-25; A9270-GY; J1650; J2060; J2405; J3411; J3490; J7030; J7120; U0002

== ENCOUNTER 2020-12-05 20:12 | Emergency (ER) | payer BC, OTHER ==
[2020-12-05] MEDS ORDERED: MVI, Adult with Vitamin K 10 ML, Thiamine 100 MG, Folic Acid 1 MG in Lactated Ringers 1... IV ONE ×4 (20:20)
--- NOTE | 2020-12-05 20:26 | EDM.PDOCBH ---
ED HPI GENERAL MEDICAL PROBLEM - General Chief Complaint: Drug or Alcohol Abuse Stated Complaint: AMBULANCE Time Seen by Provider: 12/05/20 20:21 Source of Information: Reports: Patient, EMS, RN, RN Notes Reviewed History Limitations: Reports: Intoxication - History of Present Illness INITIAL COMMENTS - FREE TEXT/NARRATIVE: Patient presents to ED via EMS with altered mental status due to alcohol intoxication. Per EMS the patient was found outside of her car by her children unresponsive. Upon EMS arrival patient was responsive to questions with a GCS of 9. Upon arrival to facility GCS 14, patient spontaneously opening her eyes and responding verbally to questions. She is disheveled with a large amount of gravel dirt stuck to her back. - Related Data Allergies Allergy/AdvReac Type Severity Reaction Status Date / Time amoxicillin Allergy Rash Verified 12/05/20 20:25 Penicillins Allergy Rash Verified 12/05/20 20:25 Home Meds: Home Meds Varenicline Tartrate [Chantix] 1 mg PO ASDIRECTED 12/05/20 [History] Past Medical History - Past Health History Medical/Surgical History: Denies Medical/Surgical History HEENT History: Reports: None Cardiovascular History: Reports: None Respiratory History: Reports: None Gastrointestinal History: Reports: None Genitourinary History: Reports: None [employer] History: Reports: Other (See Below) Other [employer] 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 3 miscarriages this past winter, last one was January 2015 twins. deliveries at 34 amd 36 weeks Musculoskeletal History: Reports: Back Pain, Chronic, Fracture Other Musculoskeletal History: fractures wrist hx with surgery 2003 Neurological History: Reports: Head Trauma Psychiatric History: Reports: Depression Other Psychiatric History: cigarette smoker and alcohol abuse in remission sustaned Endocrine/Metabolic History: Reports: Diabetes, Gestational Hematologic History: Reports: None Immunologic History: Reports: None Oncologic (Cancer) History: Reports: None Dermatologic History: Reports: None - Infectious Disease History Infectious Disease History: Reports: LOM-[id number]-[id number] Enterobacteriaceae - Past Surgical History Endocrine Surgical History: Reports: None Neurological Surgical History: Reports: None Social & Family History - Family History Family Medical History: No Pertinent Family History - Caffeine Use Caffeine Use: Reports: None - Living Situation & Occupation Living situation: Reports: Single Occupation: Employed ED ROS GENERAL - Review of Systems Review Of Systems: Unable To Obtain Reason Not Obtained: Intoxication ED EXAM, BEHAVIORAL HEALTH - Physical Exam Exam: See Below Exam Limited By: Intoxication General Appearance: No Apparent Distress, Lethargic, Obese Eye Exam: Bilateral Eye: Conjunctival Injection, PERRL (5mm) Head: Atraumatic, Normocephalic Neck: Normal Inspection, Supple. No: Lymphadenopathy (L), Lymphadenopathy (R) Respiratory/Chest: No Respiratory Distress, Lungs Clear, Normal Breath Sounds, No Accessory Muscle Use, Chest Non-Tender Cardiovascular: Normal Peripheral Pulses, Regular Rate, Rhythm, No Edema, No Gallop, No JVD, No Murmur, No Rub GI/Abdominal: Normal Bowel Sounds, Soft, No Distention, No Mass, Pelvis Stable (Female) Exam: Deferred Rectal (Female) Exam: Deferred Extremities: Normal Inspection, Non-Tender, No Pedal Edema, Normal Capillary Refill Neurological: Opens Eyes to Commands, Slow Response to Commands, Withdraws to Pain, Other (Lethargic; Intoxicated) Psychiatric: Inattentive, Non-Communicative, Withdrawn Skin Exam: Warm, Dry, Intact, Normal color, No rash, Other (Large amount of gravel dirt stuck to her back; No open abrasions or imbedded gravel) #1 Interpretation EKG Date: 12/05/20 Time: 20:36 Rhythm: NSR Rate (Beats/Min): 84 [place]: LAD-Left [place] Deviation P-Wave: Present QRS: Normal ST-T: Normal QT: Normal TX/PQ Interval: 0.172 Comparison: NA - No Prior EKG EKG Interpretation Comments: NSR; Q-wave in III and aVR; No evidence of acute myocardial ischemia COURSE, BEHAVIORAL HEALTH COMP - Course Vital Signs: Last Vital Signs Temp 98.4 F 12/06/20 01:30 Pulse 86 12/06/20 01:30 Resp 14 12/06/20 01:30 BP 112/70 12/06/20 01:30 Pulse Ox 96 12/06/20 01:30 Orders, Labs, Meds: Laboratory Tests 12/05/20 12/05/20 12/05/20 Range/Units 20:31 20:31 20:31 WBC 10.4 H (5.0-10.0) 10^3/uL RBC 4.87 (4.2-5.4) 10^6/uL Hgb 15.3 D (12.0-16.0) g/dL Hct 45.7 (37.0-47.0) % MCV 93.8 (80-100) fL MCH 31.4 (27.0-34.0) pg MCHC 33.5 (33.0-35.0) g/dL Plt Count 253 D (150-450) 10^3/uL Neut % (Auto) 61.9 (42.2-75.2) % Lymph % (Auto) 30.9 (20.5-50.1) % [place] % (Auto) 5.7 (2-8) % Eos % (Auto) 1.2 (1.0-3.0) % Baso % (Auto) 0.3 (0.0-1.0) % Sodium 146 H (136-145) mmol/L Potassium 3.7 (3.5-5.1) mmol/L Chloride 108 H (98-107) mmol/L Carbon Dioxide 25 (21-32) mmol/L Anion Gap 16.7 H (7-13) mEq/L BUN 11 (7-18) mg/dL Creatinine 0.87 (0.55-1.02) mg/dL Est Cr Clr Drug Dosing TNP Estimated GFR (MDRD) > 60 BUN/Creatinine Ratio 12.6 (No establ ref range) Glucose 102 H (74-99) mg/dL Lactic Acid 1.8 (0.4-2.0) mmol/L Calcium 7.8 L (8.5-10.1) mg/dL Magnesium 2.3 (1.8-2.4) mg/dL Total Bilirubin 0.1 L (0.2-1.0) mg/dL AST 15 (15-37) U/L ALT 22 (14-59) U/L Alkaline Phosphatase 89 (46-116) U/L Troponin I < 0.017 (0.000-0.056) ng/mL C-Reactive Protein < 0.2 (0.0-0.9) mg/dL Total Protein 7.1 (6.4-8.2) g/dL Albumin 3.3 L (3.4-5.0) g/dL Globulin 3.8 Albumin/Globulin Ratio 0.87 Ethyl Alcohol 441 (0) mg/dL 12/06/20 12/06/20 Range/Units 00:34 00:34 WBC (5.0-10.0) 10^3/uL RBC (4.2-5.4) 10^6/uL Hgb (12.0-16.0) g/dL Hct (37.0-47.0) % MCV (80-100) fL MCH (27.0-34.0) pg MCHC (33.0-35.0) g/dL Plt Count (150-450) 10^3/uL Neut % (Auto) (42.2-75.2) % Lymph % (Auto) (20.5-50.1) % [place] % (Auto) (2-8) % Eos % (Auto) (1.0-3.0) % Baso % (Auto) (0.0-1.0) % Sodium 143 (136-145) mmol/L Potassium 4.0 (3.5-5.1) mmol/L Chloride 107 (98-107) mmol/L Carbon Dioxide 25 (21-32) mmol/L Anion Gap 15.0 H (7-13) mEq/L BUN 11 (7-18) mg/dL Creatinine 0.56 (0.55-1.02) mg/dL Est Cr Clr Drug Dosing TNP Estimated GFR (MDRD) > 60 BUN/Creatinine Ratio (No establ ref range) Glucose 107 H (74-99) mg/dL Lactic Acid (0.4-2.0) mmol/L Calcium 7.1 L (8.5-10.1) mg/dL Magnesium (1.8-2.4) mg/dL Total Bilirubin (0.2-1.0) mg/dL AST (15-37) U/L ALT (14-59) U/L Alkaline Phosphatase (46-116) U/L Troponin I (0.000-0.056) ng/mL C-Reactive Protein (0.0-0.9) mg/dL Total Protein (6.4-8.2) g/dL Albumin (3.4-5.0) g/dL Globulin Albumin/Globulin Ratio Ethyl Alcohol 306 (0) mg/dL Medications Discontinued Medications Generic Name Dose Route Start Last Admin Trade Name Freq PRN Reason Stop Dose Admin Multivitamins/Minerals 10 ml/ 1,011.2 mls @ 999 mls/hr 12/05/20 20:20 12/05/20 22:25 Thiamine HCl 100 mg/ Folic IV 12/05/20 21:20 Infused Acid 1 mg/ Lactated Ringer's .BOLUS ONE Infusion Sodium Chloride 1,000 mls @ 500 mls/hr 12/05/20 22:15 12/05/20 22:25 Sodium Chloride 0.45% IV 500 mls/hr ASDIRECTED MAX Administration Re-Assessment/Re-Exam: Patient transferred to acute stay for hydration and rest. Will recheck sodium and ETOH following banana bag and 1L 1/2NS. Recheck of ETOH 306. Sodium now 143. Patient assessed by advertising copywriter on the floor with a GCS of 15, alert, oriented, and talking. Discussed events of today, including ED visit via EMS for acute alcohol intoxication. Discussed lab values. Patient states she has family available to give her a ride and would like to avoid admission to Detox. Departure - Departure Time of Disposition: 01:46 Disposition: Home, Self-Care 01 Condition: Fair Clinical Impression: Hypernatremia Acute alcohol intoxication Qualifiers: Complication of substance-induced condition: uncomplicated Qualified Code(s): F10.920 - Alcohol use, unspecified with intoxication, uncomplicated - Discharge Information *PRESCRIPTION DRUG MONITORING PROGRAM REVIEWED*: Not Applicable *COPY OF PRESCRIPTION DRUG MONITORING REPORT IN PATIENT [place]AN[place]: Not Applicable Instructions: Alcohol Use Disorder, Alcohol Intoxication, [id number] Forms: ED Department Discharge Additional Instructions: 1.) Refrain from drinking alcohol to excess. 2.) Drink plenty of water to stay hydrated. 3.) Eat a balanced diet, avoiding grease, high-fat, and spicy foods, during recovery from acute intoxication. Sepsis Event Note (ED) - Focused Exam Vital Signs: Vital Signs Temp Pulse Resp BP BP Pulse Ox 12/06/20 01:30 98.4 F 86 14 112/70 96 12/05/20 23:00 97.5 F 88 14 109/66 96 12/05/20 20:13 97.4 F 89 12 112/39 L 95
[2020-12-05 21:06] LABS: ANION GAP 16.7 mEq/L (7-13); CHLORIDE,CL 108 mmol/L (98-107); SODIUM,NA 146 mmol/L (136-145)
[2020-12-05] MEDS ORDERED: Sodium Chloride 0.45% 1,000 ML IV SCH (22:15)
[2020-12-06 00:56] LABS: CHLORIDE,CL 107 mmol/L (98-107); SODIUM,NA 143 mmol/L (136-145)
[2020-12-06 02:14] VITALS: BP 112/70; PULSE 86
== END 2020-12-06 02:00 | disposition home or self-care (01) ==
LOC: DL.ED 20:12
DX: E87.0 Hyperosmolality and hypernatremia (principal); F17.200 Nicotine dependence, unspecified, uncomplicated; F10.120 Alcohol abuse with intoxication, uncomplicated; Y90.8 Blood alcohol level of 240 mg/100 ml or more; Z88.0 Allergy status to penicillin
CPT/HCPCS: 36415; 80048; 80053; 80307; 83605; 83735; 84484; 85025; 86140; 93005; 96365; 96366; 99284; J3411; J7030; J7120; 93010; J3490

== ENCOUNTER 2021-12-16 17:30 | Emergency (ER) | payer BC, OTHER ==
[2021-12-16 17:51] VITALS: BP 106/74; PULSE 80
== END 2021-12-16 18:10 | disposition left against medical advice (07) ==
LOC: DL.ED 17:30
DX: S68.115A Complete traumatic metacarpophalangeal amputation of left ring finger, initial encounter (principal); Z88.0 Allergy status to penicillin; Z88.1 Allergy status to other antibiotic agents; Z53.21 Procedure and treatment not carried out due to patient leaving prior to being seen by health care provider

== ENCOUNTER 2021-12-16 19:59 | Emergency (ER) | payer MEDICAID, OTHER | END 2021-12-16 20:05 | LOC: DL.ED 19:59 | DX: F10.129 Alcohol abuse with intoxication, unspecified (principal); Z88.0 Allergy status to penicillin | CPT/HCPCS: 99282; 99283 ==

== ENCOUNTER 2023-05-25 16:46 | Emergency (ER) | payer BC, OTHER ==
[2023-05-25 17:09] VITALS: BP 121/71; PULSE 67
== END 2023-05-25 18:35 | disposition home or self-care (01) ==
LOC: DL.ED 16:46
DX: R68.84 Jaw pain (principal); Z88.0 Allergy status to penicillin; Z88.1 Allergy status to other antibiotic agents
CPT/HCPCS: 70486; 99283

== ENCOUNTER 2024-11-27 15:47 | Emergency (ER) | payer SELFPAY ==
[2024-11-27 16:39] LABS: APPEARANCE,URINE CLEAR (CLEAR); BILIRUBIN,URINE NEGATIVE (NEGATIVE); GLUCOSE,URINE NEGATIVE (NEGATIVE); KETONES,URINE NEGATIVE (NEGATIVE); LEUKOCYTE ESTERASE,URINE NEGATIVE (NEGATIVE); NITRITE,URINE NEGATIVE (NEGATIVE); OCCULT BLOOD,URINE NEGATIVE (NEGATIVE); PH,URINE 5.5 (5.0-9.0); PROTEIN,URINE NEGATIVE (NEGATIVE); UROBILINOGEN,URINE 0.2 mg/dL (0.2-1.0)
[2024-11-27 16:41] LABS: COLOR,URINE LIGHT YELLOW (YELLOW)
[2024-11-27 19:23] VITALS: BP 118/62; PULSE 62
== END 2024-11-27 19:20 | disposition home or self-care (01) ==
LOC: DL.ED 15:47
DX: M54.42 Lumbago with sciatica, left side (principal); M62.830 Muscle spasm of back; Z88.8 Allergy status to other drugs, medicaments and biological substances
CPT/HCPCS: 72100; 81003; 81025; 99283